=== PATIENT | male | born 1980 | race Caucasian/White ===

== ENCOUNTER 2018-09-09 23:30 | Emergency (ER) | payer BC ==
[2018-09-09 23:46] VITALS: BP 149/91; PULSE 115
--- NOTE | 2018-09-10 00:06 | EDM.PDOC ---
ED HPI GENERAL MEDICAL PROBLEM - General Chief Complaint: Skin Complaint Stated Complaint: RASH Time Seen by Provider: 09/09/18 23:45 Source of Information: Reports: Patient History Limitations: Reports: No Limitations - History of Present Illness INITIAL COMMENTS - FREE TEXT/NARRATIVE: 38-year-old male with a painful rash on the right buttock and right leg for the past 2-3 days. No fevers or chills, no other significant illness. He is under a lot of stress. Onset: Gradual Duration: Day(s): (Over the past 2-4 days) Location: Reports: Lower Extremity, Right Bilateral Buttock Pain Score (Numeric/FACES): 4 - Related Data Allergies Allergy/AdvReac Type Severity Reaction Status Date / Time No Known Allergies Allergy Verified 03/22/14 11:05 Home Meds: Home Meds NK [No Known Home Meds] 03/22/14 [History] Past Medical History - Past Health History Medical/Surgical History: Denies Medical/Surgical History Social & Family History - Family History Family Medical History: Noncontributory - Tobacco Use Smoking Status *Q: Current Every Day Smoker Years of Tobacco use: 15 Packs/Tins Daily: 0.7 - Caffeine Use Caffeine Use: Reports: Coffee, Soda Caffeine Use Comment: daily use - Alcohol Use Days Per Week of Alcohol Use: 1 Number of Drinks Per Day: 3 Total Drinks Per Week: 3 - Recreational Drug Use Recreational Drug Use: No ED ROS GENERAL - Review of Systems Review Of Systems: See Below Constitutional: Denies: Fever Cardiovascular: Reports: No Symptoms GI/Abdominal: Reports: No Symptoms : Reports: Other (Some intermittent urinary urgency over the past several months but nothing consistent) Skin: Reports: Rash ED EXAM, SKIN/RASH Exam: See Below Exam Limited By: No Limitations General Appearance: Alert, Mild Distress (. Comfortable) Head: Atraumatic Respiratory/Chest: No Respiratory Distress Extremities: Other (Exam is otherwise limited to the buttocks and posterior legs. The patient has blistering or rub. Irregular rash pattern on the right buttock and right posterior thigh with underlying erythema) Course - Vital Signs Last Recorded V/S: Last Vital Signs Temp 97.2 F 09/09/18 23:42 Pulse 115 H 09/09/18 23:42 Resp 16 09/09/18 23:42 BP 149/91 H 09/09/18 23:42 Pulse Ox 98 09/09/18 23:42 - Re-Assessments/Exams Free Text/Narrative Re-Assessment/Exam: 09/10/18 00:04 Patient has shingles. He was placed on acyclovir 400 mg 4 times a day for the next 5 days. Also given 10 hydrocodone for extra pain control. Recheck in 2 days if not improving satisfactorily. Also continue with anti-inflammatories for pain. Departure - Departure Time of Disposition: 00:16 Disposition: Home, Self-Care 01 Clinical Impression: Shingles outbreak Qualifiers: Herpes zoster complications: without complications Qualified Code(s): B02.9 - Zoster without complications - Discharge Information Instructions: Shingles, [id number] Referrals: PCP,None [Primary Care Provider] - Forms: ED Department Discharge Care Plan Goals: Take 2 pills of acyclovir tonight, then one pill every 6 hours until gone. Anti- inflammatories will help such as ibuprofen or naproxen and add stronger pain medication if needed. Recheck in 2 days if not improving despite treatment.
== END 2018-09-10 00:13 | disposition home or self-care (01) ==
LOC: JP.ED 23:30
DX: B02.9 Zoster without complications (principal); F17.210 Nicotine dependence, cigarettes, uncomplicated
CPT/HCPCS: 99282